=== PATIENT | female | born 2000 | race Caucasian/White ===

== ENCOUNTER → 2024-04-19 08:58 | Outpatient (REF) | payer OTHER, SELFPAY ==
[2024-04-21 07:05] LABS: Quantiferon Mitogen minus NIL 8.37 IU/mL; Quantiferon TB Gold Plus Negative (Negative)
== END ==
LOC: REG 08:58
PROVIDERS: ATTENDING PHYSICIAN Nurse Practitioner
DX: Z23 Encounter for immunization (principal)
CPT/HCPCS: 36415; 86480